=== PATIENT | male | born 1965 | race Two or more races ===

== ENCOUNTER 2016-11-25 12:48 | Emergency (ER) | payer OTHER ==
--- NOTE | 2016-11-25 12:53 | ED.PDOC ---
General ED Provider: Dr. ELIAS MELENDEZ JR Chief Complaint: Rash Stated Complaint: THINKS HE HAS SHINGLES. RED AREAS WITH SCABS AND BLISTERS TO RIGHT ABD, FLANK, BACK[ End ]98.2 75 20 97% 102/73 8/10 Time Seen by Physician: 13:08 Exam Limitations: No limitations Primary Care Provider: JAMAR CROCKER Nursing and Triage Documentation Reviewed and Agree: No Review of Systems - Review Of Systems Constitutional: Reports: Malaise Musculoskeletal: Reports: Back pain Skin: Reports: Rash All Other Systems: Other Past Medical History - Past Medical History Previously Healthy: Yes Endocrine: Reports: None Cardiovascular: Reports: None Respiratory: Reports: Asthma Hematological: Reports: None Gastrointestinal: Reports: None Genitourinary: Reports: None Neuro/Psych: Reports: None Musculoskeletal: Reports: Back Pain (chronic) Cancer: Reports: None - Surgical History General Surgical History: Reports: Orthopedic (KNEE SURGERY, CARPAL TUNNEL ), Unknown - Family History Family History: Reports: Unknown - Social History Smoking Status: Never smoker Hx Substance Use: No Alcohol Screening: Occasionally Physical Exam - Physical Exam Appearance: Well-appearing Ill-appearing: Mild Pain Distress: Moderate Eyes: JOSE ENT: Ears normal, Nose normal, Oropharynx normal Respiratory: Airway patent Cardiovascular: RRR, Pulses normal, No rub, No murmur GI/: Soft, Nontender, No masses, Bowel sounds normal, No Organomegaly Musculoskeletal: Normal strength, ROM intact, No edema, No calf tenderness Skin: Warm, Dry, Normal color (right back and flank lesions consistent with acute zoster) Neurological: Sensation intact, Motor intact, Reflexes intact, Cranial nerves intact, Alert, Oriented Psychiatric: Affect appropriate, Mood appropriate Critical Care Note - Critical Care Note Total Time (mins): 0 Course - Course Orders, Labs, Meds: Orders Category Date Time Status Methylprednisolone Sod Succ/Pf [Solu-Medrol 125 mg] MEDS 11/25/16 13:14 Discontinued 125 mg IM ONCE STA Medications Discontinued Medications Generic Name Dose Route Start Last Admin Trade Name Freq PRN Reason Stop Dose Admin Methylprednisolone Sodium Succinate 125 mg 11/25/16 13:14 11/25/16 13:24 Solu-Medrol 125 Mg IM 11/25/16 13:15 125 mg ONCE STA Administration Vital Signs: Temp Pulse Resp BP Pulse Ox 11/25/16 12:52 98.2 F 75 20 102/73 97 Departure - Departure Time of Disposition: 13:46 Disposition: HOME SELF-CARE Discharge Problem: Zoster Qualifiers: Herpes zoster complications: without complications Qualifier Code: (B02.9) Zoster without complications Instructions: Shingles (ED) Condition: Fair Pt referred to PMD for follow-up: Yes Additional Instructions: acyclovir for rash solumedrol given for pain recheck PMD one week, recheck rash discuss possble causes of breakouts may follow with [facility] return if rash increases in size if fever over 101.0 Prescriptions: Acyclovir 800 mg PO QID #20 tablet Allergies/Adverse Reactions: Allergies No Known Allergies Allergy (Unverified 11/25/16 12:50) Home Medications: Ambulatory Orders Gabapentin [Neurontin] 800 mg PO QID 02/09/13 Nabumetone [Relafen] 1,000 mg PO BIDWM 02/09/13 Tiagabine HCl [Gabitril] 16 mg PO BID 02/09/13 Lorazepam 0.5 mg PO QID PRN 11/27/14 Acyclovir 800 mg PO QID #20 tablet 11/25/16 Oxycodone HCl/Acetaminophen [Oxycodone-Acetaminophen 10-325] 1 each PO TID PRN 11/25/16
[2016-11-25 13:00] VITALS: BP 102/73; TEMP 98.2; BMI 11.8
[2016-11-25] MEDS ORDERED: SOLU-MEDROL 125 MG IM STA (13:14)
== END 2016-11-25 13:56 | disposition home or self-care (01) ==
LOC: ED 12:48
DX: B02.9 Zoster without complications (principal)
CPT/HCPCS: 96372; 99282